=== PATIENT | male | born 1985 | race Caucasian/White ===

== ENCOUNTER 2022-01-08 20:49 | Outpatient (CLI) | payer OTHER | END 2022-01-08 20:50 | disposition critical access hospital (66) | LOC: EMS 20:49 | DX: R45.89 Other symptoms and signs involving emotional state (principal); Z63.4 Disappearance and death of family member; Z63.5 Disruption of family by separation and divorce | CPT/HCPCS: A0425; A0429 ==

== ENCOUNTER 2022-01-08 21:22 | Emergency (ER) | payer OTHER ==
--- NOTE | 2022-01-08 21:54 | ED Physician Documentation ---
History of Present Illness - Stated complaint Stated Complaint: MHE - Chief complaint Chief Complaint: MHE - History obtained from History obtained from: Patient - Additonal information Additional information: 36yM with pmh alcohol syndrome, depression, not on meds (previously took citalopram in 2018, stopped taking after about 3 months), p/w passive SI tonight. patient denies active plan but states he has thought about hanging himself in the past. He also endorses impulsive self injurious behavior in the past including hitting his leg with a coffee mug and breaking it, punching arm through a wall. no guns in the home. from his in March 2021. His mother killed herself a couple years ago. denies HI or AVH. not interested in inpatient psychiatric care at this time. patient does not have a primary doctor or psychiatrist but does have a new counselor Shantel Kenny and has his 2nd online counseling appointment tomorrow morning. Review of Systems Ten Systems: 10 systems reviewed and negative Constitutional: denies: Fever, Chills Psychiatric: reports: Depressed, Suicidal. denies: Homicidal, Hallucinations PD PAST MEDICAL HISTORY - Present Medications Home Medications: Ambulatory Orders Medication Instructions Recorded Confirmed No Known Home Medications 01/08/22 01/08/22 - Allergies Allergies/Adverse Reactions: Allergies Allergy/AdvReac Type Severity Reaction Status Date / Time No Known Drug Allergies Allergy Verified 01/08/22 21:45 PD ED PE NORMAL - Vitals Vital signs reviewed: Yes - General General: Alert and oriented X 3, No acute distress, Well developed/nourished - HEENT HEENT: Atraumatic, PERRL, EOMI - Neck Neck: Supple, no meningeal sign - Cardiac Cardiac: RRR - Respiratory Respiratory: No respiratory distress, Clear bilaterally - Abdomen Abdomen: Non tender, Non distended - Derm Derm: Normal color, Warm and dry - Extremities Extremities: No deformity - Neuro Neuro: Alert and oriented X 3, No motor deficit, No sensory deficit - Psych Psych: Other (tearful affect. mood is described as "depressed" and overwhelmed) Results - Vitals Vitals: Vital Signs - 24 hr 01/08/22 21:45 Temperature 36.7 C Heart Rate 81 Respiratory 18 Rate Blood Pressure 146/82 H O2 Saturation 99 Oxygen O2 Source Room air - Labs Labs: Laboratory Tests 02/07/2201/08/22 01/08/22 21:56 21:56 21:56 WBC 6.7 RBC 4.62 L Hgb 14.4 Hct 42.1 MCV 91.1 MCH 31.2 H MCHC 34.2 RDW 12.1 Plt Count 210 MPV 10.0 Neut # (Auto) 3.9 Lymph # (Auto) 1.9 [place] # (Auto) 0.6 Eos # (Auto) 0.2 Baso # (Auto) 0.0 Absolute Nucleated RBC 0.00 Nucleated RBC % 0.0 Sodium 138 Potassium 3.9 Chloride 104 Carbon Dioxide 26 Anion Gap 8.0 BUN 12 Creatinine 0.8 Estimated GFR (MDRD) 108 Glucose 95 Calcium 8.5 Total Bilirubin 0.8 AST 16 ALT 18 Alkaline Phosphatase 40 L Total Protein 6.7 Albumin 4.3 Globulin 2.4 Albumin/Globulin Ratio 1.8 Lipase 31 TSH 1.35 Urine Color Urine Clarity Urine pH Ur Specific [place] Urine Protein Urine Glucose (UA) Urine Ketones Urine Occult Blood Urine Nitrite Urine Bilirubin Urine Urobilinogen Ur Leukocyte Esterase Ur Microscopic Review Urine Culture Comments Salicylates < 6.0 Urine Opiates Screen Ur Oxycodone Screen Urine Methadone Screen Ur Propoxyphene Screen Acetaminophen < 10 L Ur Barbiturates Screen Ur Tricyclics Screen Ur Phencyclidine Scrn Ur Amphetamine Screen U Methamphetamines Scrn U Benzodiazepines Scrn Urine Cocaine Screen U Cannabinoids Screen Ethyl Alcohol < 5.0 01/08/22 22:09 WBC RBC Hgb Hct MCV MCH MCHC RDW Plt Count MPV Neut # (Auto) Lymph # (Auto) [place] # (Auto) Eos # (Auto) Baso # (Auto) Absolute Nucleated RBC Nucleated RBC % Sodium Potassium Chloride Carbon Dioxide Anion Gap BUN Creatinine Estimated GFR (MDRD) Glucose Calcium Total Bilirubin AST ALT Alkaline Phosphatase Total Protein Albumin Globulin Albumin/Globulin Ratio Lipase TSH Urine Color YELLOW Urine Clarity CLEAR Urine pH 6.0 Ur Specific [place] 1.020 Urine Protein NEGATIVE Urine Glucose (UA) NEGATIVE Urine Ketones NEGATIVE Urine Occult Blood NEGATIVE Urine Nitrite NEGATIVE Urine Bilirubin NEGATIVE Urine Urobilinogen 0.2 (NORMAL) Ur Leukocyte Esterase NEGATIVE Ur Microscopic Review NOT INDICATED Urine Culture Comments NOT INDICATED Salicylates Urine Opiates Screen NEGATIVE Ur Oxycodone Screen NEGATIVE Urine Methadone Screen NEGATIVE Ur Propoxyphene Screen NEGATIVE Acetaminophen Ur Barbiturates Screen NEGATIVE Ur Tricyclics Screen NEGATIVE Ur Phencyclidine Scrn NEGATIVE Ur Amphetamine Screen NEGATIVE U Methamphetamines Scrn NEGATIVE U Benzodiazepines Scrn NEGATIVE Urine Cocaine Screen NEGATIVE U Cannabinoids Screen POSITIVE H Ethyl Alcohol PD MEDICAL DECISION MAKING - ED course ED course: 36yM initially presented with passive SI, now stating he is no longer suicidal, and was "just scared" and lonely this evening when he called ems. contracts for safety in the ED. not interested in evaluation for inpatient psychiatric care. Screening labs were normal. patient to be provided with national suicide prevention hotline and [facility] [place] [place]. Plan to follow up with [facility] for psychiatric care and outpatient mental health counseling appointment tomorrow. Departure - Departure Disposition: Home, Self Care Clinical Impression: Depression Condition: Stable Instructions: ED Depression Follow-Up: Hannah Chavez ARNP [Credentialed Staff Provider] - Comments: You were seen in the ED for depression and suicidal thoughts. Please call 911 and return to the ED immediately if you have new or worsening symptoms or other concerns. Follow up with [facility] for psychiatry evaluation. Please also follow up with a primary care provider as soon as possible. We recommend Hannah Chavez, located in [place]. [facility] [address] [place] [address] National suicide prevention hotline [facility] crisis line
[2022-01-08 22:00] LABS: BASOPHILS % (AUTO) 0.6 %; EOSINOPHILS # (AUTO) 0.2 10^3/uL (0.0-0.7); EOSINOPHILS % (AUTO) 2.4 %; HCT - HEMATOCRIT 42.1 % (42.0-52.0); HGB - HEMOGLOBIN 14.4 g/dL (14.0-18.0); LYMPHOCYTES # (AUTO) 1.9 10^3/uL (1.5-3.5); LYMPHOCYTES % (AUTO) 28.6 %; MEAN CORPUSCULAR HEMOGLOBIN 31.2 pg (27.0-31.0); MEAN CORPUSCULAR HGB CONC 34.2 g/dL (32.0-36.0); MEAN CORPUSCULAR VOLUME 91.1 fL (80.0-94.0); MONOCYTES # (AUTO) 0.6 10^3/uL (0.0-1.0); MONOCYTES % (AUTO) 9.6 %; NEUTROPHILS # (AUTO) 3.9 10^3/uL (1.5-6.6); NEUTROPHILS % (AUTO) 58.7 %; PLT - PLATELET COUNT 210 10^3/uL (130-450); RED BLOOD COUNT 4.62 10^6/uL (4.70-6.10); RED CELL DISTRIBUTION WIDTH 12.1 % (12.0-15.0); WHITE BLOOD COUNT 6.7 x10^3/uL (4.8-10.8)
[2022-01-08 22:10] LABS: CALCIUM 8.5 mg/dL (8.5-10.3); CARBON DIOXIDE - CO2 26 mmol/L (21-32); CHLORIDE 104 mmol/L (101-111); GLUCOSE 95 mg/dL (70-100); POTASSIUM 3.9 mmol/L (3.5-5.0); SODIUM 138 mmol/L (135-145)
[2022-01-08 22:12] LABS: MUDS CUTOFF CONCENTRATIONS CUTOFF CONC BELOW:
[2022-01-08 22:14] LABS: BILIRUBIN,URINE NEGATIVE (NEGATIVE); GLUCOSE, URINE (UA) NEGATIVE (NEGATIVE); KETONES,URINE (UA) NEGATIVE (NEGATIVE); LEUKOCYTE ESTERASE, URINE NEGATIVE (NEGATIVE); NITRITE,URINE NEGATIVE (NEGATIVE); OCCULT BLOOD,URINE NEGATIVE (NEGATIVE); PROTEIN,URINE NEGATIVE (NEGATIVE); UROBILINOGEN,URINE 0.2 (NORMAL) E.U./dL (NORMAL)
[2022-01-08 22:16] LABS: CLARITY,URINE CLEAR (CLEAR)
[2022-01-08 22:27] LABS: AMPHETAMINE SCREEN,URINE NEGATIVE (NEGATIVE); BARBITURATE SCREEN,UR NEGATIVE (NEGATIVE); BENZODIAZEPINES SCREEN, URINE NEGATIVE (NEGATIVE); COCAINE SCREEN URINE NEGATIVE (NEGATIVE); METHADONE SCREEN, URINE NEGATIVE (NEGATIVE); METHAMPHETAMINES SCREEN, URINE NEGATIVE (NEGATIVE); OPIATE SCREEN, URINE NEGATIVE (NEGATIVE); OXYCODONE SCREEN, URINE NEGATIVE (NEGATIVE); PROPOXYPHENE SCREEN, URINE NEGATIVE (NEGATIVE); THC CANNABINOID SCREEN, URINE POSITIVE (NEGATIVE); TRICYCLIC ANTIDEPRESSANT,URINE NEGATIVE (NEGATIVE)
[2022-01-08 23:13] LABS: ACETAMINOPHEN < 10 ug/mL (10-30); ALBUMIN 4.3 g/dL (3.2-5.5); ALBUMIN/GLOBULIN RATIO 1.8 (1.0-2.2); ALKALINE PHOSPHATASE 40 IU/L (42-121); ALT ALANINE AMINOTRANSFERASE 18 IU/L (10-60); AST ASPARTATE AMINOTRANSFERASE 16 IU/L (10-42); BILIRUBIN,TOTAL 0.8 mg/dL (0.2-1.0); BUN - BLOOD UREA NITROGEN 12 mg/dL (6-20); CREATININE 0.8 mg/dL (0.6-1.2); ETOH - ETHANOL < 5.0 mg/dL; GFR - MDRD 108 (>89); LIPASE 31 U/L (22-51); SALICYLATE < 6.0 mg/dL; TOTAL PROTEIN 6.7 g/dL (6.7-8.2)
[2022-01-08 23:53] VITALS: BP 133/81
== END 2022-01-09 00:48 | disposition home or self-care (01) ==
LOC: ED 21:22
DX: F32.A Depression, unspecified (principal)
CPT/HCPCS: 36415; 80053; 80306; 80307; 80320; 80329; 81001; 81003; 83690; 84443; 85025; 87086; 99283

== ENCOUNTER 2022-01-14 07:26 | Emergency (ER) | payer OTHER ==
[2022-01-14 07:40] VITALS: BP 153/89
[2022-01-14] MEDS ORDERED: diazePAM 5 MG TABLET PO STA (08:11)
--- NOTE | 2022-01-14 08:13 | ED Physician Documentation ---
History of Present Illness - Stated complaint Stated Complaint: ANXIETY ATTACK - Chief complaint Chief Complaint: MHE - History obtained from History obtained from: Patient - Additonal information Additional information: Patient comes to the emergency department chief complaint of anxiety. The patient states that he Has occasionally felt anxious in the past, but that recently, multiple things have gone wrong, including losing his job and a long- term relationship falling apart. Patient states he also has worries for the future. He states that he began to feel quite anxious last week and had a c ouple of ED visits, the second of which was at [place]. He was prescribed Seroquel and Divalproex from the ED there, but , But that he has had a lot of stomach upset on these medications and feels as though they are not agreeing with him. He would like to be on something different. He also states he would like to have something for rescue if he has an anxiety attack. The patient states that his family lives far away, but he does have good friends in the area who have been very supportive of him. He denies The patient states that heSubstance abuse. The patient states he is otherwise healthy. No previous psychiatric has been making phone calls to get established with both primary care and a counselor, and feels this is going well. No other complaints at this time. Review of Systems Ten Systems: 10 systems reviewed and negative Constitutional: reports: Reviewed and negative Eyes: reports: Reviewed and negative Ears: reports: Reviewed and negative Nose: reports: Reviewed and negative Throat: reports: Reviewed and negative Cardiac: reports: Reviewed and negative Respiratory: reports: Reviewed and negative GI: reports: Reviewed and negative : reports: Reviewed and negative Skin: reports: Reviewed and negative Musculoskeletal: reports: Reviewed and negative Neurologic: reports: Reviewed and negative Psychiatric: reports: Anxiety Endocrine: reports: Reviewed and negative Immunocompromised: reports: Reviewed and negative PD PAST MEDICAL HISTORY - Past Medical History Neuro: Head injury Psych: Depression, Anxiety, ADD/ADHD - Past Surgical History Past Surgical History: No - Present Medications Home Medications: Ambulatory Orders Medication Instructions Recorded Confirmed Diazepam [Valium] 2 mg PO Q6H PRN #15 tablet 01/14/22 PARoxetine HCl [Paxil] 20 mg PO DAILY #30 tablet 01/14/22 - Allergies Allergies/Adverse Reactions: Allergies Allergy/AdvReac Type Severity Reaction Status Date / Time No Known Drug Allergies Allergy Verified 01/14/22 07:36 - Social History Does the pt smoke?: No Smoking Status: Never smoker Does the pt drink ETOH?: No Does the pt have substance abuse?: No - Immunizations Immunizations are current?: Yes PD ED PE NORMAL - Vitals Vital signs reviewed: Yes - General General: Alert and oriented X 3, No acute distress, Well developed/nourished - HEENT HEENT: Atraumatic, PERRL, EOMI, Moist mucous membranes - Neck Neck: Supple, no meningeal sign - Cardiac Cardiac: RRR, No murmur - Respiratory Respiratory: No respiratory distress, Clear bilaterally - Abdomen Abdomen: Soft, Non tender, Non distended - Derm Derm: Normal color, Warm and dry, No rash - Extremities Extremities: No deformity, No edema, No calf tenderness / cord - Neuro Neuro: Alert and oriented X 3, 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 He did not feel he needed inpatient treatment and I did not find this either. We discussed that he should continue his plans for establishment with primary care and a counselor and we discussed the usual indications for return. Departure - Departure Disposition: 01 Home, Self Care Clinical Impression: Anxiety Condition: Stable Instructions: ED Stress React, ED Panic Attack Prescriptions: PARoxetine HCl [Paxil] 20 mg PO DAILY #30 tablet Diazepam [Valium] 2 mg PO Q6H PRN #15 tablet PRN Reason: Anxiety Comments: You have been prescribed 2 medications for your anxiety. The paroxetine, or Paxil, you should take every day. The Valium can be taken as needed if you have an acute anxiety attack. If you do not like the way the other medications are making you feel, then for now, stop taking those medications, and take the new ones only. Please follow-up in primary care as soon as possible. Please also continue your plans to get established with a counselor. Your prescriptions have been electronically transmitted to [facility] in [place].
== END 2022-01-14 08:29 | disposition home or self-care (01) ==
LOC: ED 07:26
DX: F41.9 Anxiety disorder, unspecified (principal)
CPT/HCPCS: 99282; 99283; A9270

== ENCOUNTER 2022-12-10 11:53 | Outpatient (CLI) | payer OTHER | END 2022-12-10 11:54 | disposition EMS.NT | LOC: EMS 11:53 | DX: R46.2 Strange and inexplicable behavior (principal) ==

== ENCOUNTER 2023-01-13 11:29 | Emergency (ER) | payer OTHER ==
--- NOTE | 2023-01-13 11:47 | ED Physician Documentation ---
Restraint [id number] - Immediate Situation Face to Face Evaluation Date: 01/13/23 Face to Face Evaluation Time: 11:45 Restraint Classification: Violent, seclusion Restraint Type: Seclusion - Patient's Reaction & Behaviors Safety: Physically safe, Physically unsafe, Compliant Verbal: Asking for information Harm: Potential harm to self, Potential harm to others Other: Resting quietly - Behavioral Condition Attitude: Guarded Behavior: Cooperative, Other (Guarded. He has a desire to go home and is agreeing to labs if that will facilitate discharge from the emergency department) Orientation: Person, Place, Time Mood: Labile - Evaluation Review of Systems: admits to self harm as a "fuck you" to [employer] Pertinent History/Illicit Drugs/Medications/Results: unable to obtain, has been seen previously for MHE. very guarded - Plan Need to Continue or Terminate Violent or Chemical Restraint: will continue. no need for chemical restraint at this time. pt is agreeing to lab draw. H eis asking for water. Hoping for continued cooperation and ability to remove from seclusion
--- NOTE | 2023-01-13 11:50 | ED Physician Documentation ---
History of Present Illness - Stated complaint Stated Complaint: MHE - Chief complaint Chief Complaint: MHE - Additonal information Additional information: 37-year-old male [facility]. He is brought here under an LAI. Reportedly he had placed a rope around his neck and was attempting to hang himself along a road sign. A passerby called 911. [facility] him here with LAI in place. On presentation to the emergency department he was hypervigilant pacing and guarded. He was placed into the seclusion room for his safety at 1135 am. I was able to speak with the patient about 10 minutes after he was placed in the seclusion room he is guarded. He admits to placing a rope around his neck as a "fuck you" to [facility] officers. He admits to thoughts of self-harm as well as harm to others. Patient does desire to go home. At this time he verbally agrees to have laboratory data obtained. He is requesting water to drink Review of Systems Constitutional: reports: Reviewed and negative Cardiac: reports: Reviewed and negative Respiratory: reports: Reviewed and negative Psychiatric: reports: Suicidal, Homicidal, Anxiety PD PAST MEDICAL HISTORY - Past Medical History Neuro: Head injury Psych: Depression, Anxiety, ADD/ADHD - Past Surgical History Past Surgical History: No - Present Medications Home Medications: Ambulatory Orders Medication Instructions Recorded Confirmed Diazepam [Valium] 2 mg PO Q6H PRN #15 tablet 01/14/22 PARoxetine HCL [Paxil] 20 mg PO DAILY #30 tablet 01/14/22 - Allergies Allergies/Adverse Reactions: Allergies Allergy/AdvReac Type Severity Reaction Status Date / Time No Known Drug Allergies Allergy Verified 01/13/23 11:45 - Social History Does the pt smoke?: No Smoking Status: Never smoker Does the pt drink ETOH?: No Does the pt have substance abuse?: No - Immunizations Immunizations are current?: Yes PD ED PE NORMAL - General General: Alert and oriented X 3, No acute distress, Well developed/nourished - HEENT HEENT: Atraumatic, Moist mucous membranes - Cardiac Cardiac: RRR, No murmur - Respiratory Respiratory: No respiratory distress, Clear bilaterally - Abdomen Abdomen: Normal bowel sounds, Soft - Neuro Neuro: Alert and oriented X 3, 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 Thoughts of self-harm to himself and others) Results - Vitals Vitals: Vital Signs - 24 hr 01/13/23 12:04 Temperature 36.8 C Heart Rate 65 Respiratory 20 Rate Blood Pressure 158/100 H O2 Saturation 100 Oxygen O2 Source Room air - Labs Labs: Laboratory Tests 01/13/23 01/13/23 01/13/23 11:51 11:51 11:51 WBC 5.1 RBC 5.36 Hgb 16.2 Hct 49.1 MCV 91.6 MCH 30.2 MCHC 33.0 RDW 12.8 Plt Count 233 MPV 10.0 Neut # (Auto) 3.3 Lymph # (Auto) 1.2 L [place] # (Auto) 0.5 Eos # (Auto) 0.1 Baso # (Auto) 0.0 Absolute Nucleated RBC 0.00 Nucleated RBC % 0.0 Sodium 140 Potassium 4.4 Chloride 104 Carbon Dioxide 27 Anion Gap 9.0 BUN 15 Creatinine 1.1 Estimated GFR (MDRD) 75 L Glucose 99 Calcium 9.4 Total Bilirubin 0.7 AST 18 ALT 17 Alkaline Phosphatase 75 Total Protein 8.0 Albumin 4.9 Globulin 3.1 Albumin/Globulin Ratio 1.6 Lipase 29 TSH 1.13 Urine Color Urine Clarity Urine pH Ur Specific [place] Urine Protein Urine Glucose (UA) Urine Ketones Urine Occult Blood Urine Nitrite Urine Bilirubin Urine Urobilinogen Ur Leukocyte Esterase Ur Microscopic Review Urine Culture Comments Nasal Adenovirus (PCR) Nasal B. parapertussis DNA (PCR) Nasal Coronavir 229E PCR Nasal Coronavir HKU1 PCR Nasal Coronavir NL63 PCR Nasal Coronavir OC43 PCR Nasal Enterovir/Rhinovir PCR Nasal Influenza B PCR Nasal Influenza A PCR Nasal Parainfluen 1 PCR Nasal Parainfluen 2 PCR Nasal Parainfluen 3 PCR Nasal Parainfluen 4 PCR Nasal RSV (PCR) Nasal B.pertussis DNA PCR Nasal C.pneumoniae (PCR) Vincent Human Metapneumo PCR Nasal M.pneumoniae (PCR) Nasal SARS-CoV-2 (PCR) Salicylates < 6.0 Urine Opiates Screen Ur Oxycodone Screen Urine Methadone Screen Ur Propoxyphene Screen Acetaminophen < 10 L Ur Barbiturates Screen Ur Tricyclics Screen Ur Phencyclidine Scrn Ur Amphetamine Screen U Methamphetamines Scrn U Benzodiazepines Scrn Urine Cocaine Screen U Cannabinoids Screen Ethyl Alcohol < 5.0 01/13/23 01/13/23 12:01 12:01 WBC RBC Hgb Hct MCV MCH MCHC RDW Plt Count MPV Neut # (Auto) Lymph # (Auto) [place] # (Auto) Eos # (Auto) Baso # (Auto) Absolute Nucleated RBC Nucleated RBC % Sodium Potassium Chloride Carbon Dioxide Anion Gap BUN Creatinine Estimated GFR (MDRD) Glucose Calcium Total Bilirubin AST ALT Alkaline Phosphatase Total Protein Albumin Globulin Albumin/Globulin Ratio Lipase TSH Urine Color YELLOW Urine Clarity CLEAR Urine pH 6.0 Ur Specific [place] 1.025 Urine Protein TRACE Urine Glucose (UA) NEGATIVE Urine Ketones NEGATIVE Urine Occult Blood NEGATIVE Urine Nitrite NEGATIVE Urine Bilirubin NEGATIVE Urine Urobilinogen 0.2 (NORMAL) Ur Leukocyte Esterase NEGATIVE Ur Microscopic Review NOT INDICATED Urine Culture Comments NOT INDICATED Nasal Adenovirus (PCR) NOT DETECTED Nasal B. parapertussis DNA (PCR) NOT DETECTED Nasal Coronavir 229E PCR NOT DETECTED Nasal Coronavir HKU1 PCR NOT DETECTED Nasal Coronavir NL63 PCR NOT DETECTED Nasal Coronavir OC43 PCR NOT DETECTED Nasal Enterovir/Rhinovir PCR NOT DETECTED Nasal Influenza B PCR NOT DETECTED Nasal Influenza A PCR NOT DETECTED Nasal Parainfluen 1 PCR NOT DETECTED Nasal Parainfluen 2 PCR NOT DETECTED Nasal Parainfluen 3 PCR NOT DETECTED Nasal Parainfluen 4 PCR NOT DETECTED Nasal RSV (PCR) NOT DETECTED Nasal B.pertussis DNA PCR NOT DETECTED Nasal C.pneumoniae (PCR) NOT DETECTED Vincent Human Metapneumo PCR NOT DETECTED Nasal M.pneumoniae (PCR) NOT DETECTED Nasal SARS-CoV-2 (PCR) NOT DETECTED Salicylates Urine Opiates Screen NEGATIVE Ur Oxycodone Screen NEGATIVE Urine Methadone Screen NEGATIVE Ur Propoxyphene Screen NEGATIVE Acetaminophen Ur Barbiturates Screen NEGATIVE Ur Tricyclics Screen NEGATIVE Ur Phencyclidine Scrn NEGATIVE Ur Amphetamine Screen NEGATIVE U Methamphetamines Scrn NEGATIVE U Benzodiazepines Scrn NEGATIVE Urine Cocaine Screen NEGATIVE U Cannabinoids Screen POSITIVE H Ethyl Alcohol PD Medical Decision Making - ED course Complexity details: considered differential, d/w patient, d/w rural health consultant (LORI Ulloa) ED course: 37-year-old male brought to the emergency department [facility] for evaluation of attempting to place a rope around his neck and hang himself from a roadside. Patient reports extreme frustration with [employer] officers. Initially on presentation he was agitated and guarded and was placed in the solitary room. He was always redirectable verbally and never required escalation of restraint or seclusion with medication. Here in the ER we did obtain the routine mental health screening labs with no worrisome findings seen. His urine drug screen was positive for cannabis only. He was subsequently seen by her social welfare administrator who recommended DCR evaluation. The DCR available was Laila. She has been able to evaluate the patient and does not feel that he meets the criteria for detainment. She reports that [facility] out reach and his director case management will follow-up with the patient. I went into the seclusion room with the patient and discussed with him. He states that he has no plans to harm himself he was simply frustrated. He reports to me that he is grateful for the care rendered in the ER and would like to be discharged home. At this time I do not see any reason to further detain this patient and he is free to go. I believe patient has a capacity to make these decisions and choices. He was told that should he ever feel unsafe or [id number] he could return immediately to the ER Departure - Departure Disposition: 01 Home, Self Care Clinical Impression: Agitation Condition: Stable Record reviewed to determine appropriate education?: Yes Comments: Arun escobar are [facility] when passerby's on the road saw you placed a rope around your neck and attempt to hang yourself. You reported to us that you are doing this out of frustration with the service station attendant officers but do not really want to harm yourself. You have been evaluated by the designated crisis responder and she does not feel that we have any ability to detain you for mental health stabilization. You are free to go. [facility] outreach will be contacting you as well as your director case management. If at any point you ever feel unsafe please return immediately to the ER or call 911.
[2023-01-13 11:57] LABS: BASOPHILS % (AUTO) 0.8 %; EOSINOPHILS # (AUTO) 0.1 10^3/uL (0.0-0.7); EOSINOPHILS % (AUTO) 1.6 %; HCT - HEMATOCRIT 49.1 % (42.0-52.0); HGB - HEMOGLOBIN 16.2 g/dL (14.0-18.0); LYMPHOCYTES # (AUTO) 1.2 10^3/uL (1.5-3.5); LYMPHOCYTES % (AUTO) 24.3 %; MEAN CORPUSCULAR HEMOGLOBIN 30.2 pg (27.0-31.0); MEAN CORPUSCULAR VOLUME 91.6 fL (80.0-94.0); MONOCYTES # (AUTO) 0.5 10^3/uL (0.0-1.0); MONOCYTES % (AUTO) 8.9 %; NEUTROPHILS # (AUTO) 3.3 10^3/uL (1.5-6.6); NEUTROPHILS % (AUTO) 64.2 %; PLT - PLATELET COUNT 233 10^3/uL (130-450); RED BLOOD COUNT 5.36 10^6/uL (4.70-6.10); RED CELL DISTRIBUTION WIDTH 12.8 % (12.0-15.0); WHITE BLOOD COUNT 5.1 x10^3/uL (4.8-10.8)
[2023-01-13 12:09] LABS: MUDS CUTOFF CONCENTRATIONS CUTOFF CONC BELOW:
[2023-01-13 12:12] LABS: ACETAMINOPHEN < 10 ug/mL (10-30); ALBUMIN 4.9 g/dL (3.2-5.5); ALBUMIN/GLOBULIN RATIO 1.6 (1.0-2.2); ALKALINE PHOSPHATASE 75 IU/L (42-121); ALT ALANINE AMINOTRANSFERASE 17 IU/L (10-60); AST ASPARTATE AMINOTRANSFERASE 18 IU/L (10-42); BILIRUBIN,TOTAL 0.7 mg/dL (0.2-1.0); BUN - BLOOD UREA NITROGEN 15 mg/dL (6-20); CALCIUM 9.4 mg/dL (8.5-10.3); CARBON DIOXIDE - CO2 27 mmol/L (21-32); CHLORIDE 104 mmol/L (101-111); CREATININE 1.1 mg/dL (0.6-1.2); ETOH - ETHANOL < 5.0 mg/dL; GFR - MDRD 75 (>89); GLUCOSE 99 mg/dL (70-100); LIPASE 29 U/L (22-51); POTASSIUM 4.4 mmol/L (3.5-5.0); SALICYLATE < 6.0 mg/dL; SODIUM 140 mmol/L (135-145)
[2023-01-13 12:18] LABS: BILIRUBIN,URINE NEGATIVE (NEGATIVE); GLUCOSE, URINE (UA) NEGATIVE (NEGATIVE); KETONES,URINE (UA) NEGATIVE (NEGATIVE); LEUKOCYTE ESTERASE, URINE NEGATIVE (NEGATIVE); NITRITE,URINE NEGATIVE (NEGATIVE); OCCULT BLOOD,URINE NEGATIVE (NEGATIVE); PROTEIN,URINE TRACE mg/dL (NEGATIVE); UROBILINOGEN,URINE 0.2 (NORMAL) E.U./dL (NORMAL)
[2023-01-13 12:26] LABS: AMPHETAMINE SCREEN,URINE NEGATIVE (NEGATIVE); BARBITURATE SCREEN,UR NEGATIVE (NEGATIVE); BENZODIAZEPINES SCREEN, URINE NEGATIVE (NEGATIVE); CLARITY,URINE CLEAR (CLEAR); COCAINE SCREEN URINE NEGATIVE (NEGATIVE); METHADONE SCREEN, URINE NEGATIVE (NEGATIVE); METHAMPHETAMINES SCREEN, URINE NEGATIVE (NEGATIVE); OPIATE SCREEN, URINE NEGATIVE (NEGATIVE); OXYCODONE SCREEN, URINE NEGATIVE (NEGATIVE); PROPOXYPHENE SCREEN, URINE NEGATIVE (NEGATIVE); THC CANNABINOID SCREEN, URINE POSITIVE (NEGATIVE); TRICYCLIC ANTIDEPRESSANT,URINE NEGATIVE (NEGATIVE)
[2023-01-13 13:05] LABS: CORONAVIRUS 229E-RESP PCR NOT DETECTED; CORONAVIRUS HKU1-RESP PCR NOT DETECTED; CORONAVIRUS NL63-RESP PCR NOT DETECTED; CORONAVIRUS OC43-RESP PCR NOT DETECTED; HUMAN METAPNEUMOVIRUS NOT DETECTED; INFLUENZA A- RESP PCR PANEL NOT DETECTED; RHINOVIRUS/ENTEROVIRUS NOT DETECTED; SARS-CoV-2 -RESP PCR PANEL NOT DETECTED
[2023-01-13 13:06] LABS: B. PARAPERTUSSIS- RESP PCR PAN NOT DETECTED; B. PERTUSSIS- RESP PCR PANEL NOT DETECTED; C. PNEUMONIAE- RESP PCR PANEL NOT DETECTED; INFLUENZA B - RESP PCR PANEL NOT DETECTED; M. PNEUMONIAE- RESP PCR PANEL NOT DETECTED; PARAINFLUENZA VIRUS 1 NOT DETECTED; PARAINFLUENZA VIRUS 2 NOT DETECTED; PARAINFLUENZA VIRUS 3 NOT DETECTED; PARAINFLUENZA VIRUS 4 NOT DETECTED; RSV- RESP PCR PANEL NOT DETECTED
--- NOTE | 2023-01-13 16:44 | ED Physician Documentation ---
Restraint [id number] - Immediate Situation Face to Face Evaluation Date: 01/13/23 Face to Face Evaluation Time: 16:00 Restraint Classification: Violent, seclusion Restraint Type: Seclusion - Patient's Reaction & Behaviors Safety: Physically safe, Compliant Verbal: Asking for information Harm: Potential harm to self, Potential harm to others Physical: Punching (punching mcdaniel) - Behavioral Condition Attitude: Guarded Behavior: Agitated Orientation: Person, Place, Time Mood: Labile - Evaluation Review of Systems: admits to self harm as [facility] Pertinent History/Illicit Drugs/Medications/Results: unable to obtain, has been seen previously for MHE. very guarded - Plan Need to Continue or Terminate Violent or Chemical Restraint: We will continue to monitor. Patient is intermittently punching the mcdaniel. At this time would not be safe for removal from the seclusion room has not yet req uired chemical sedation. Pending DCR evaluation
--- NOTE | 2023-01-13 19:19 | ED Physician Documentation ---
Restraint Oszc-[id number]-Robl - Immediate Situation Face to Face Evaluation Date: 01/13/23 Face to Face Evaluation Time: 19:20 Restraint Classification: Violent, seclusion Restraint Type: Seclusion - Patient's Reaction & Behaviors Safety: Physically safe, Follows Commands Verbal: Demanding, Screaming/Yelling Harm: Potential harm to self, Potential harm to others Physical: Aggressive behavior, Punching - Behavioral Condition Attitude: Guarded, Other (Angry) Behavior: Agitated Orientation: Person, Place, Time Mood: Labile Behavioral Condition Comments: Patient is frustrated angry and upset. He refuses oral medication for ankylosis. Frustrated that DCR has been unable to speak with him up to this point. He remains in physical seclusion. Video monitoring continues. - Evaluation Review of Systems: admits to self harm as a "fuck you" to [employer] Pertinent History/Illicit Drugs/Medications/Results: unable to obtain, has been seen previously for MHE. very guarded - Plan Need to Continue or Terminate Violent or Chemical Restraint: Patient is upset about remaining in the emergency department wishes to leave. He is stating that he does not want to harm himself. He is redirectable verbally
[2023-01-13 20:10] VITALS: BP 180/90
== END 2023-01-13 20:16 | disposition home or self-care (01) ==
LOC: EDUNIT# → ED 11:29
DX: R45.1 Restlessness and agitation (principal); Z20.822 Contact with and (suspected) exposure to COVID-19
CPT/HCPCS: 36415; 80053; 80306; 80307; 80320; 80329; 81001; 81003; 83690; 84443; 85025; 87086; 87633; 99283; 99285